=== PATIENT | female | born 2000 | race Caucasian/White ===

== ENCOUNTER 2021-04-03 21:12 | Emergency (ER) | payer BC ==
[~2021-04-03] VITALS: Ht 170.2 cm; Wt 59.1 kg
[~2021-04-03 21:12] MED LIST: NO HOME MEDICATIONS
[2021-04-03 21:22] VITALS: TEMP 97.2
[2021-04-03 23:33] VITALS: BP 128/76; PULSE 134
== END 2021-04-03 23:33 | disposition home or self-care (01) ==
LOC: COL.ER 21:12
DX: F12.10 Cannabis abuse, uncomplicated (principal)
CPT/HCPCS: J2060